=== PATIENT | male | born 1930 | race Caucasian/White ===

== ENCOUNTER 2016-11-12 14:01 | Observation (INO) | payer MEDICARE ==
[~2016-11-12] VITALS: Ht 170.2 cm; Wt 50.1 kg
[~2016-11-12 14:01] MED LIST changes: -COSOPT 2%-0.5%10 ML OU; -COZAAR 50MG50 MG/TAB PO; -DULCOLAX STOOL100 MG PO; -GLUCOTROL XL5 MG/TAB PO; -JANUVIA25 MG PO; -LANTUS100 U/ML SQ; -LIPITOR 40MG TA40 MG PO; -LOPRESSOR 225 MG/TAB PO; -TYLENOL 500MG500 MG PO; -VITAMIN D 1001000 IU PO; -XALATAN EYE DROPS OU; -ZANTAC 150MG T150 MG PO
[2016-11-12 14:32] VITALS: BP 124/58; PULSE 84; TEMP 98.3
[2016-11-12] MEDS ORDERED: COZAAR 50MG50 MG/TAB PO (15:03)
[2016-11-12] MEDS ORDERED: LOPRESSOR 225 MG/TAB PO (15:03)
[2016-11-12] MEDS ORDERED: JANUVIA25 MG PO (15:04)
[2016-11-12] MEDS ORDERED: LASIX 40MG TABL40 MG PO (15:04)
[2016-11-12] MEDS ORDERED: GLUCOTROL XL5 MG/TAB PO (15:04)
[2016-11-12] MEDS ORDERED: ZANTAC 150MG T150 MG PO (15:04)
[2016-11-12] MEDS ORDERED: DULCOLAX STOOL100 MG PO (15:05)
[2016-11-12] MEDS ORDERED: LIPITOR 40MG TA40 MG PO (15:05)
[2016-11-12] MEDS ORDERED: LANTUS100 U/ML SQ (15:05)
[2016-11-12] MEDS ORDERED: PLAVIX 75MG TAB75 MG PO (15:05)
[2016-11-12] MEDS ORDERED: ASPIRIN 81M81 MG/TA2 PO (15:06)
[2016-11-12] MEDS ORDERED: TYLENOL 500MG500 MG PO (15:06)
[2016-11-12] MEDS ORDERED: COSOPT 2%-0.5%10 ML OU (15:07)
[2016-11-12] MEDS ORDERED: VITAMIN D 1001000 IU PO (15:07)
[2016-11-12] MEDS ORDERED: XALATAN EYE DROPS OU (15:08)
[2016-11-12 15:59] VITALS: BP 119/58; PULSE 78; TEMP 98.3
[2016-11-12 16:56] LABS: BASO % 0.1 % (0.0-2.0); EOS % 0.1 % (0-4.0); GRAN # 5.1 (1.4-6.5); GRAN % 75.1 % (42.2-75.2); HEMOGLOBIN 12.2 g/dl (13.5-18.0); LYMPH # 0.9 (1.2-3.4); LYMPH % 12.5 % (20.0-51.0); MEAN CELL VOLUME 108 fl (80.0-100.0); MEAN CORPUSCULAR HEMOGLOBIN 36 pg (27.0-31.0); MEAN CORPUSCULAR HGB CONC 34 g/dl (33.0-37.0); MEAN PLATELET VOLUME 11.2 fl (7.4-10.4); MONO # 0.8 (0.1-0.6); MONO % 11.5 % (1.7-9.3); PLATELET COUNT 140 K/mm3 (130-400); RED BLOOD COUNT 3.35 M/mm3 (4.20-5.60); REDCELL DISTRIBUTION WIDTH-CV 13.7 % (11.5-14.5); WHITE BLOOD COUNT 6.8 K/mm3 (4.8-10.8)
[2016-11-12 17:06] LABS: ADJUSTED CALCIUM 9.2 mg/dL (8.4-10.2); ALBUMIN 4.1 gm/dL (3.5-5.0); BILIRUBIN,TOTAL 0.9 mg/dL (0.0-1.0); CALCIUM 9.3 mg/dL (8.4-10.2); CREATININE, serum 2.19 mg/dL (0.66-1.25); POTASSIUM 4.2 mmol/L (3.4-5.0); TOTAL PROTEIN 7.1 gm/dL (6.4-8.2)
[2016-11-12 17:08] LABS: HEMATOCRIT 36.3 % (42.0-52.0)
[2016-11-12 17:25] LABS: ERYTHROCYTE SEDIMENTATION RATE 47 mm/hr (0-30)
[2016-11-12 19:39] VITALS: BP 110/61; PULSE 81; TEMP 98.3
[2016-11-12 23:47] VITALS: BP 122/74; PULSE 78; TEMP 97.8
[2016-11-13 04:29] VITALS: BP 120/59; PULSE 73; TEMP 97.8
[2016-11-13 06:53] VITALS: BP 120/59; PULSE 73; TEMP 97.8
[2016-11-13 11:41] VITALS: BP 109/59; PULSE 70; TEMP 97.9
[2016-11-13 12:03] LABS: CALCIUM 9.4 mg/dL (8.4-10.2); CREATININE, serum 1.94 mg/dL (0.66-1.25)
[2016-11-13 15:45] VITALS: BP 107/58; PULSE 71; TEMP 98.7
== END 2016-11-13 17:00 | disposition home health service (06) ==
LOC: MEDICAL 14:01
PROVIDERS: Physician Assistant
DX: H54.41 Blindness, right eye, normal vision left eye (principal); H47.011 Ischemic optic neuropathy, right eye; H40.9 Unspecified glaucoma; I25.10 Atherosclerotic heart disease of native coronary artery without angina pectoris; Z95.1 Presence of aortocoronary bypass graft; I10 Essential (primary) hypertension; E78.5 Hyperlipidemia, unspecified; E11.9 Type 2 diabetes mellitus without complications; Z79.4 Long term (current) use of insulin; Z79.84 Long term (current) use of oral hypoglycemic drugs
CPT/HCPCS: G0378; G8978-GP; G8979-GP; G8987-GO; G8988-GO; J0690; J1815; J2250; J2405; J7030

== ENCOUNTER → 2016-11-12 | Outpatient (CLI) | payer MEDICARE ==
[2006-06-06 17:23] VITALS: TEMP 98.7
[~2016-11-12] MED LIST: ASPIRIN 32325 MG/TAB PO; ASPIRIN 81M81 MG/TA2 PO; CARDURA 2MG2 MG PO; COSOPT 2%-0.5%10 ML OU; COZAAR 50MG50 MG/TAB PO; DULCOLAX STOOL100 MG PO; GLUCOPHAGE1000 MG PO; GLUCOTROL XL5 MG/TAB PO; JANUVIA 100MG100 MG PO; JANUVIA25 MG PO; KLOR-CON M2020 MEQ PO; LANTUS100 U/ML SQ; LASIX 40MG TABL40 MG PO; LIPITOR 40MG TA40 MG PO; LIPITOR 80MG80 MG PO; LOPRESSOR 225 MG/TAB PO; LOPRESSOR 550 MG/TAB PO; LOTENSIN20 MG PO; LOTENSIN40 MG PO; MAXZIDE-25MG TA1 TAB PO; MULTI VITAMINS1 TAB PO; MULTIPLE VITAMI1 TAB PO; NATURAL E400 IU PO; NITRO-DUR0.3 MG/PAT TD; NITROQUICK0.4 MG SL; PLAVIX 75MG TAB75 MG PO; PRILOSEC 20MG20 MG PO; TENORMIN100 MG PO; TYLENOL 500MG500 MG PO; ULTRAM 50MG TAB50 MG PO; VITAMIN D 1001000 IU PO; VITAMIN E 400 U4001 PO; XALATAN EYE DROPS OU; ZANTAC 150MG T150 MG PO; ZOCOR 20MG20 MG PO
== END ==
LOC: COL.LAB 12:02
DX: H47.011 Ischemic optic neuropathy, right eye (principal)